=== PATIENT | female | born 1950 | race Caucasian/White ===

== ENCOUNTER 2024-04-21 15:31 | Inpatient (IN) | payer MEDICARE, OTHER, SELFPAY ==
[2024-04-21] VITALS (58 sets, daily range): BP systolic 83–139; BP diastolic 41–66; PULSE 70–94; RESP 14–34; TEMP 36.4; O2SAT 79–100; BMI 23.9
--- NOTE | 2024-04-21 15:37 | ECG_ITS ---
[facility] Test Date: 2024-04-21 Pat Name: Renetta Dodd Department: Room: Gender: Female Sld Inclusion Teacher: : 1950 Requested By: Haven Sarabia Order Number: [id number] Jassi MD: Nancy Villegas M.D. Measurements Intervals [place] Rate: 94 P: 50 NC: 119 QRS: 38 QRSD: 90 T: 95 QT: 366 QTc: 460 Interpretive Statements SINUS RHYTHM WITH SHORT NC INTERVAL ST DEVIATION AND MODERATE T-WAVE ABNORMALITY, CONSIDER ANTEROLATERAL ISCHEMIA [-0.1+ mV T-WAVE IN V3-V6] No previous ECG available for comparison Electronically Signed On 04-21-2024 23:49:28 CDT by Nancy Villegas M.D. [email or web address] [id number] f
--- NOTE | 2024-04-21 15:37 | XRR_ITS ---
PROCEDURE INFORMATION: Exam: XR Chest Exam date and time: 04/21/2024 4:00 PM Age: 73 years old Clinical indication: Shortness of breath TECHNIQUE: Imaging protocol: Radiologic exam of the chest. Views: 1 view. COMPARISON: No relevant prior studies available. FINDINGS: Tubes, catheters and devices: A large caliber central venous catheter or dialysis catheter seen on the right, with tip of the catheter overlying the expected level of the right atrium. Lungs: See Pleural spaces finding. Pleural spaces: Opacity is seen within the lower right lung with decreased visualization of the right diaphragm margin and costophrenic angle. Suggestion of eventration or elevation of the right hemidiaphragm. There could be some component of volume loss. Pulmonary vascularity does not appear significantly increased. No pneumothorax. Heart/Mediastinum: Borderline cardiac size. Vasculature: Arteriosclerosis of the thoracic aorta. Bones/joints: Visualized osseous structures show no acute abnormality. XR/XR chest 1V portable [id number] IMPRESSION: 1. Large caliber central venous catheter or dialysis catheter on the right. 2. Opacity lower right lung as noted above. Findings suggest mild right basilar effusion with underlying atelectasis and/or infiltrate or pneumonia.
--- NOTE | 2024-04-21 15:48 | ED_ITS ---
Documented by User: Haven Burger MD 04/21/24 17:47 HPI - SOB/Dyspnea 2 General: Chief Complaint: Shortness of Breath/Dyspnea Stated Complaint: SOB Time Seen by Provider: 04/21/24 15:34 History of Present Illness: HPI Narrative: 73-year-old female with a history of end -stage renal disease on dialysis who presents from dialysis clinic after becoming very short of breath. She was found to be hypotensive. She had just started dialysis. Apparently she just started dialysis here and this may have been her first at this unit. She had a catheter placed a week or so ago in [place]. She had been doing peritoneal dialysis prior to that. She is very difficult on presentation was difficult to tell whether she is agitated or confused. When family does arrive they say this is just how she acts. Very difficult to convince to do any kind of studies. No focal motor deficits. No head injuries. She denies any chest pain. No fever. Review of Systems 2 Narrative: Constitutional symptoms: Negative except as documented in HPI. Skin symptoms: Negative except as documented in HPI. Eye symptoms: Negative except as documented in HPI. ENMT symptoms: Negative except as documented in HPI. Respiratory symptoms: Negative except as documented in HPI. Cardiovascular symptoms: Negative except as documented in HPI. Gastrointestinal symptoms: Negative except as documented in HPI. Genitourinary symptoms: Negative except as documented in HPI. Musculoskeletal symptoms: Negative except as documented in HPI. Neurologic symptoms: Negative except as documented in HPI. Psychiatric symptoms: Negative except as documented in HPI. Endocrine symptoms: Negative except as documented in HPI. Physical Exam 2 Narrative: EXAM NARRATIVE: General: Alert, no acute distress. Skin: Warm, dry. Head: Normocephalic, atraumatic. Neck: Supple, trachea midline. Eye: Extraocular movements are intact. Ears, nose, mouth and throat: mucosa moist. Cardiovascular: Regular, Normal peripheral perfusion. Dialysis catheter in place on the right chest wall. Respiratory: Lungs are clear to auscultation, respirations are non-labored, breath sounds are equal, Symmetrical chest wall expansion. Gastrointestinal: Soft, Nontender, Non distended Musculoskeletal: Normal ROM, no deformity. Neurological: Alert and oriented, No focal neurological deficit observed. Psychiatric: Cooperative, appropriate mood & affect. Course 2 Vital Signs: Vital signs: Vital Signs Temperature 97.5 F L 04/21/24 15:33 Pulse Rate 74 04/21/24 18:35 Respiratory Rate 16 04/21/24 18:35 Blood Pressure 120/55 04/21/24 18:35 Pulse Oximetry 100 04/21/24 18:35 Oxygen Delivery Me thod Room Air 04/21/24 15:33 Fraction of Inspir ed Oxygen 30 04/21/24 17:17 MDM - SOB/Dyspnea Medical Decision Making Medical decision making: Differential diagnosis for patient presenting with generalized weakness including but not limited to and based on the above HPI, review of systems and physical exam: Sepsis. Dehydration. Renal failure. Electrolyte abnormalities. Anemia. Congestive heart failure. Hypotension. Coronary syndrome. Hepatitis. Cirrhosis. Infections such as pneumonia, urinary tract infection, Tick bourne illness, Cellulitis, Viral infections including influenza and Covid-19. Workup: labwork and lab/exam driven imaging ordered to evaluate, rule in and rule out above pathologies. Lab Review: Laboratory results were reviewed and interpreted by myself the emergency room physician. At present the patient has pretty significant leukocytosis with a white count of 17. There is concern for a possible pneumonia on the right side. Family does report that she had a pleural effusion there but also was treated for pneumonia. Given her leukocytosis or hypotension and her symptomatic dizziness I am giving her broad-spectrum antibiotics empirically. Cultures and lactate were ordered. EKG: Time 1535. Rate 94. Normal sinus rhythm, nonspecific ST wave abnormalities. PVCs, normal [place]Y & QRS intervals, This was reviewed and interpreted by myself the ER physician at 1535 Chest x-ray: Venous catheter in place on the right side of chest. There is an opacity in the right lower lung. This could be an effusion with some atelectasis or an infiltrate/pneumonia. This was reviewed and interpreted by myself the emergency room physician. I also reviewed the radiology report. Repeat EKG: Time 1738. Rate 84. Normal sinus rhythm, normal [place]Y & QRS intervals, This was reviewed and interpreted by myself the ER physician at 1738. Less nonspecific ST changes. Still with ectopy. Patient care transition to Dr. Clark at shift change: Urinalysis is pending. Patient has refused to do a CT of her chest or head. Given that she has had no head injury and apparently she is at her baseline mentally I do not feel like a head CT is absolutely necessary. And is for CT would help to determine whether this is a pneumonia or not but I am treating her empirically for pneumonia/sepsis as is. Thus far I have initiated BiPAP for hypercapnic respiratory failure and for her work of breathing. Given her leukocytosis I started broad-spectrum antibiotics meropenem and Zyvox. Concern for UTI versus a pneumonia. Also her blood pressure was low so I did give 500 ml normal saline bolus. Lab Data 04/21/24 15:30 04/21/24 15:30 Labs/Radiology: Radiology Impressions Chest X-Ray 04/21/24 15:37 IMPRESSION: 1. Large caliber central venous catheter or dialysis catheter on the right. 2. Opacity lower right lung as noted above. Findings suggest mild right basilar effusion with underlying atelectasis and/or infiltrate or pneumonia. Laboratory Results WBC 17.44 10^3/uL (3.29-11.43) H 04/21/24 15:30 RBC 3.16 10^6/uL (3.85-5.65) L 04/21/24 15:30 Hgb 10.00 g/dL (11.27-16.99) L 04/21/24 15:30 Hct 33.9 % (36-47) L 04/21/24 15:30 MCV 107.3 fl (85-98) H 04/21/24 15:30 MCH 31.6 pg (27-33) 04/21/24 15:30 MCHC 29.5 g/dL (30-55) L 04/21/24 15:30 RDW 15.9 % (12.1-15.1) H 04/21/24 15:30 Plt Count 88 10^3/cmm (157-399) L 04/21/24 15:30 MPV 12.0 fL (7.4-10.4) H 04/21/24 15:30 Neut % (Auto) 88.8 % 04/21/24 15:30 Lymph % (Auto) 3.4 % 04/21/24 15:30 [place] % (Auto) 4.8 % 04/21/24 15:30 Eos % (Auto) 0.4 % 04/21/24 15:30 Baso % (Auto) 0.4 % 04/21/24 15:30 Neut # (Auto) 15.48 10^3/uL (1.8-7.7) H 04/21/24 15:30 Lymph # (Auto) 0.6 10^3/uL (0.8-4.8) L 04/21/24 15:30 [place] # (Auto) 0.8 10^3/uL (0.2-0.9) 04/21/24 15:30 Eos # (Auto) 0.1 10^3/uL (0.0-0.8) 04/21/24 15:30 Baso # (Auto) 0.1 10^3/uL (0.0-0.1) 04/21/24 15:30 Nucleated RBC % (auto) 0.1 % 04/21/24 15:30 Nucleated RBCs # 0.0 /100WBC 04/21/24 15:30 Specimen Type Arterial 04/21/24 15:44 Sample Site Radial, left 04/21/24 15:44 ABG pH 7.32 (7.35-7.45) L 04/21/24 15:44 ABG pCO2 59.5 mmHg (35-45) H 04/21/24 15:44 ABG pO2 69.3 mmHg (80.0-100.0) L 04/21/24 15:44 ABG PO2/FiO2 Ratio 346 04/21/24 15:44 ABG HCO3 30.7 mmol/L (22-26) H 04/21/24 15:44 ABG O2 Saturation 92.5 04/21/24 15:44 ABG Base Excess 3.7 mmol/L (-2.0-2.0) H 04/21/24 15:44 Sid Test Pos 04/21/24 15:44 A-a O2 Gradient 7.5 mmHg (5-10) 04/21/24 15:44 Hematocrit 29.2 % (37-47) L 04/21/24 15:44 Hgb O2 Saturation 90.6 % (95-100) L 04/21/24 15:44 Carboxyhemoglobin 1.7 %THgb (0.4-20.1) 04/21/24 15:44 Methemoglobin 0.3 % (0.4-1.5) L 04/21/24 15:44 Total Hemoglobin 9.5 g/dL (12-16) L 04/21/24 15:44 Sodium 141.0 mmol/L (131-143) 04/21/24 15:44 Potassium 3.9 mmol/L (3.5-5.0) 04/21/24 15:44 Glucose 96.0 mg/dL (70-115) 04/21/24 15:44 Ionized Calcium 1.2 mmol/L (1.1-1.4) 04/21/24 15:44 O2 Delivery Device Nc 04/21/24 15:44 O2 Liters/Min 2.0 % 04/21/24 15:44 FiO2 28.0 % 04/21/24 15:44 Painter Sign Maintenance ID Cak 04/21/24 15:44 Sodium 141 mmol/L (136-145) 04/21/24 15:30 Potassium 4.4 mmol/L (3.5-5.1) 04/21/24 15:30 Chloride 97 mmol/L (98-107) L 04/21/24 15:30 Carbon Dioxide 27 mmol/L (22-29) 04/21/24 15:30 Anion Gap 21.4 (5-19) H 04/21/24 15:30 BUN 27 mg/dL (8-23) H 04/21/24 15:30 Creatinine 5.4 mg/dL (0.5-0.9) H 04/21/24 15:30 GFR Calculation Not Reportable 04/21/24 15:30 Glucose 94 mg/dL (65-115) 04/21/24 15:30 Calculated Osmolality 297 mOsm/kg (285-295) H 04/21/24 15:30 Lactic Acid 1.9 mmol/L (0.5-2.2) 04/21/24 15:30 Calcium 9.2 mg/dL (8.5-10.5) 04/21/24 15:30 Phosphorus 5.1 mg/dL (2.5-4.5) H 04/21/24 15:30 Magnesium 1.6 mg/dL (1.7-2.3) L 04/21/24 15:30 Total Bilirubin 0.7 mg/dL (0.15-1.2) 04/21/24 15:30 AST 66 U/L (0-32) H 04/21/24 15:30 ALT 40 U/L (0-33) H 04/21/24 15:30 Alkaline Phosphatase 162 U/L (35-105) H 04/21/24 15:30 Troponin T Baseline 772 ng/L (0-10) H* 04/21/24 15:30 Troponin T 120 Minute 733.0 ng/L (0-10) H 04/21/24 17:12 Delta Troponin T -39.0 ABS# (0-10) L 04/21/24 17:12 Total Protein 6.0 g/dL (6.6-8.7) L 04/21/24 15:30 Albumin 3.3 g/dL (3.5-5.2) L 04/21/24 15:30 Globulin 2.7 g/dL (1.3-4.6) 04/21/24 15:30 Discharge Plan Discharge Patient Disposition: Admitted As Inpatient Clinical Impression: Right lower lobe pneumonia, Acute hypoxic respiratory failure, Non-ST elevation AK (NSTEMI), End stage renal disease on dialysis, Pleural effusion on right Condition: Stable Referrals: Oscar Lara FNP [Family Provider] - Patient Instructions: Opioid Safety, Pain Management Coding Level of Care Code ED Fax Machine Repairer for Chg Fwd Documented by User: Camacho Clark DO 04/21/24 19:38 HPI - SOB/Dyspnea 2 General: Chief Complaint: Shortness of Breath/Dyspnea Stated Complaint: SOB Time Seen by Provider: 04/21/24 15:34 Course 2 Vital Signs: Vital signs: Vital Signs Temperature 97.5 F L 04/21/24 15:33 Pulse Rate 74 04/21/24 18:35 Respiratory Rate 16 04/21/24 18:35 Blood Pressure 120/55 04/21/24 18:35 Pulse Oximetry 100 04/21/24 18:35 Oxygen Delivery Me thod Room Air 04/21/24 15:33 Fraction of Inspir ed Oxygen 30 04/21/24 17:17 MDM - SOB/Dyspnea Medical Decision Making Medical decision making: Differential diagnosis for patient presenting with generalized weakness including but not limited to and based on the above HPI, review of systems and physical exam: Sepsis. Dehydration. Renal failure. Electrolyte abnormalities. Anemia. Congestive heart failure. Hypotension. Coronary syndrome. Hepatitis. Cirrhosis. Infections such as pneumonia, urinary tract infection, Tick bourne illness, Cellulitis, Viral infections including influenza and Covid-19. Workup: labwork and lab/exam driven imaging ordered to evaluate, rule in and rule out above pathologies. Lab Review: Laboratory results were reviewed and interpreted by myself the emergency room physician. At present the patient has pretty significant leukocytosis with a white count of 17. There is concern for a possible pneumonia on the right side. Family does report that she had a pleural effusion there but also was treated for pneumonia. Given her leukocytosis or hypotension and her symptomatic dizziness I am giving her broad-spectrum antibiotics empirically. Cultures and lactate were ordered. EKG: Time 1535. Rate 94. Normal sinus rhythm, nonspecific ST wave abnormalities. PVCs, normal WY & QRS intervals, This was reviewed and interpreted by myself the ER physician at 1535 Chest x-ray: Venous catheter in place on the right side of chest. There is an opacity in the right lower lung. This could be an effusion with some atelectasis or an infiltrate/pneumonia. This was reviewed and interpreted by myself the emergency room physician. I also reviewed the radiology report. Repeat EKG: Time 1738. Rate 84. Normal sinus rhythm, normal WY & QRS intervals, This was reviewed and interpreted by myself the ER physician at 1738. Less nonspecific ST changes. Still with ectopy. Patient care transition to Dr. Clark at shift change: Urinalysis is pending. Patient has refused to do a CT of her chest or head. Given that she has had no head injury and apparently she is at her baseline mentally I do not feel like a head CT is absolutely necessary. And is for CT would help to determine whether this is a pneumonia or not but I am treating her empirically for pneumonia/sepsis as is. Thus far I have initiated BiPAP for hypercapnic respiratory failure and for her work of breathing. Given her leukocytosis I started broad-spectrum antibiotics meropenem and Zyvox. Concern for UTI versus a pneumonia. Also her blood pressure was low so I did give 500 ml normal saline bolus. Patient transferred over to my care shift change, reviewed lab work chest x-ray, discussed these with the family, discussed the case with Dr. Ramirez we will admit the patient for hypoxia, respiratory failure, probable pneumonia versus pulmonary effusion, possible NSTEMI. Will place the patient in CSU, we will get a sputum culture, add vancomycin, heparin drip, Lab Data 04/21/24 15:30 04/21/24 15:30 Labs/Radiology: Radiology Impressions Chest X-Ray 04/21/24 15:37 IMPRESSION: 1. Large caliber central venous catheter or dialysis catheter on the right. 2. Opacity lower right lung as noted above. Findings suggest mild right basilar effusion with underlying atelectasis and/or infiltrate or pneumonia. Laboratory Results WBC 17.44 10^3/uL (3.29-11.43) H 04/21/24 15:30 RBC 3.16 10^6/uL (3.85-5.65) L 04/21/24 15:30 Hgb 10.00 g/dL (11.27-16.99) L 04/21/24 15:30 Hct 33.9 % (36-47) L 04/21/24 15:30 MCV 107.3 fl (85-98) H 04/21/24 15:30 MCH 31.6 pg (27-33) 04/21/24 15:30 MCHC 29.5 g/dL (30-55) L 04/21/24 15:30 RDW 15.9 % (12.1-15.1) H 04/21/24 15:30 Plt Count 88 10^3/cmm (157-399) L 04/21/24 15:30 MPV 12.0 fL (7.4-10.4) H 04/21/24 15:30 Neut % (Auto) 88.8 % 04/21/24 15:30 Lymph % (Auto) 3.4 % 04/21/24 15:30 [place] % (Auto) 4.8 % 04/21/24 15:30 Eos % (Auto) 0.4 % 04/21/24 15:30 Baso % (Auto) 0.4 % 04/21/24 15:30 Neut # (Auto) 15.48 10^3/uL (1.8-7.7) H 04/21/24 15:30 Lymph # (Auto) 0.6 10^3/uL (0.8-4.8) L 04/21/24 15:30 [place] # (Auto) 0.8 10^3/uL (0.2-0.9) 04/21/24 15:30 Eos # (Auto) 0.1 10^3/uL (0.0-0.8) 04/21/24 15:30 Baso # (Auto) 0.1 10^3/uL (0.0-0.1) 04/21/24 15:30 Nucleated RBC % (auto) 0.1 % 04/21/24 15:30 Nucleated RBCs # 0.0 /100WBC 04/21/24 15:30 Specimen Type Arterial 04/21/24 15:44 Sample Site Radial, left 04/21/24 15:44 ABG pH 7.32 (7.35-7.45) L 04/21/24 15:44 ABG pCO2 59.5 mmHg (35-45) H 04/21/24 15:44 ABG pO2 69.3 mmHg (80.0-100.0) L 04/21/24 15:44 ABG PO2/FiO2 Ratio 346 04/21/24 15:44 ABG HCO3 30.7 mmol/L (22-26) H 04/21/24 15:44 ABG O2 Saturation 92.5 04/21/24 15:44 ABG Base Excess 3.7 mmol/L (-2.0-2.0) H 04/21/24 15:44 Sid Test Pos 04/21/24 15:44 A-a O2 Gradient 7.5 mmHg (5-10) 04/21/24 15:44 Hematocrit 29.2 % (37-47) L 04/21/24 15:44 Hgb O2 Saturation 90.6 % (95-100) L 04/21/24 15:44 Carboxyhemoglobin 1.7 %THgb (0.4-20.1) 04/21/24 15:44 Methemoglobin 0.3 % (0.4-1.5) L 04/21/24 15:44 Total Hemoglobin 9.5 g/dL (12-16) L 04/21/24 15:44 Sodium 141.0 mmol/L (131-143) 04/21/24 15:44 Potassium 3.9 mmol/L (3.5-5.0) 04/21/24 15:44 Glucose 96.0 mg/dL (70-115) 04/21/24 15:44 Ionized Calcium 1.2 mmol/L (1.1-1.4) 04/21/24 15:44 O2 Delivery Device Nc 04/21/24 15:44 O2 Liters/Min 2.0 % 04/21/24 15:44 FiO2 28.0 % 04/21/24 15:44 Painter Sign Maintenance ID Cak 04/21/24 15:44 Sodium 141 mmol/L (136-145) 04/21/24 15:30 Potassium 4.4 mmol/L (3.5-5.1) 04/21/24 15:30 Chloride 97 mmol/L (98-107) L 04/21/24 15:30 Carbon Dioxide 27 mmol/L (22-29) 04/21/24 15:30 Anion Gap 21.4 (5-19) H 04/21/24 15:30 BUN 27 mg/dL (8-23) H 04/21/24 15:30 Creatinine 5.4 mg/dL (0.5-0.9) H 04/21/24 15:30 GFR Calculation Not Reportable 04/21/24 15:30 Glucose 94 mg/dL (65-115) 04/21/24 15:30 Calculated Osmolality 297 mOsm/kg (285-295) H 04/21/24 15:30 Lactic Acid 1.9 mmol/L (0.5-2.2) 04/21/24 15:30 Calcium 9.2 mg/dL (8.5-10.5) 04/21/24 15:30 Phosphorus 5.1 mg/dL (2.5-4.5) H 04/21/24 15:30 Magnesium 1.6 mg/dL (1.7-2.3) L 04/21/24 15:30 Total Bilirubin 0.7 mg/dL (0.15-1.2) 04/21/24 15:30 AST 66 U/L (0-32) H 04/21/24 15:30 ALT 40 U/L (0-33) H 04/21/24 15:30 Alkaline Phosphatase 162 U/L (35-105) H 04/21/24 15:30 Troponin T Baseline 772 ng/L (0-10) H* 04/21/24 15:30 Troponin T 120 Minute 733.0 ng/L (0-10) H 04/21/24 17:12 Delta Troponin T -39.0 ABS# (0-10) L 04/21/24 17:12 Total Protein 6.0 g/dL (6.6-8.7) L 04/21/24 15:30 Albumin 3.3 g/dL (3.5-5.2) L 04/21/24 15:30 Globulin 2.7 g/dL (1.3-4.6) 04/21/24 15:30 All radiology interpretation(s) finalized by discharge Discharge Plan Discharge Patient Disposition: Admitted As Inpatient Clinical Impression: Right lower lobe pneumonia, Acute hypoxic respiratory failure, Non-ST elevation AK (NSTEMI), End stage renal disease on dialysis, Pleural effusion on right Condition: Stable Referrals: Oscar Lara FNP [Family Provider] - Patient Instructions: Opioid Safety, Pain Management Coding Level of Care Code ED Fax Machine Repairer for Celeste Melgar
[2024-04-21 15:55] LABS: ABG PCO2 59.5 mmHg (35-45); ABG PH Result 7.32 (7.35-7.45); Alveolar-Arterial Oxygen Gradi 7.5 mmHg (5-10); Arterial Blood Gas Hematocrit 29.2 % (37-47); Base Excess ABG 3.7 mmol/L (-2.0-2.0); Blood Gas Allen Test Pos; Blood Gas Operator Identificat CAK; Blood Gas Sample Site Radial, left; Blood Gas Sample Type Arterial; Carboxyhemoglobin 1.7 %THgb (0.4-20.1); HCO3 ABG 30.7 mmol/L (22-26); HGB O2 Sat 90.6 % (95-100); Ionized Calcium Level - ABG 1.2 mmol/L (1.1-1.4); Methemoglobin 0.3 % (0.4-1.5); Oxygen Device NC; Oxygen Saturation ABG 92.5; PO2 ABG 69.3 mmHg (80.0-100.0); PO2 FiO2 Ratio Arterial Blood 346; Potassium Level - ABG 3.9 mmol/L (3.5-5.0); Total Hemoglobin 9.5 g/dL (12-16)
[2024-04-21 16:16] LABS: Basophils # 0.1 10^3/uL (0.0-0.1); Basophils % 0.4 %; Eosinophils # 0.1 10^3/uL (0.0-0.8); Eosinophils % 0.4 %; Hematocrit 33.9 % (36-47); Lymphocytes # 0.6 10^3/uL (0.8-4.8); Lymphocytes % 3.4 %; Mean Corpuscular HGB Conc 29.5 g/dL (30-55); Mean Corpuscular Hemoglobin 31.6 pg (27-33); Mean Corpuscular Volume 107.3 fl (85-98); Monocytes # 0.8 10^3/uL (0.2-0.9); Monocytes % 4.8 %; Neutrophils # 15.48 10^3/uL (1.8-7.7); Neutrophils % 88.8 %; Nucleated Red Blood Cells % 0.1 %; Platelet Count 88 10^3/cmm (157-399); Red Blood Count 3.16 10^6/uL (3.85-5.65); Red Cell Distribution Width 15.9 % (12.1-15.1); White Blood Count 17.44 10^3/uL (3.29-11.43)
[2024-04-21 16:37] LABS: Alanine Aminotransferase 40 U/L (0-33); Albumin Level 3.3 g/dL (3.5-5.2); Alkaline Phosphatase 162 U/L (35-105); Chloride 97 mmol/L (98-107); Potassium 4.4 mmol/L (3.5-5.1); Sodium 141 mmol/L (136-145)
[2024-04-21 16:38] LABS: Lactic Sepsis W/Reflex 1.9 mmol/L (0.5-2.2)
[2024-04-21 16:42] LABS: Troponin(5th) Baseline 772 ng/L (0-10)
[2024-04-21 16:51] LABS: Anion Gap 21.4 (5-19); Aspartate Amino Transferase 66 U/L (0-32); Blood Urea Nitrogen 27 mg/dL (8-23); Calcium 9.2 mg/dL (8.5-10.5); Carbon Dioxide 27 mmol/L (22-29); Globulin 2.7 g/dL (1.3-4.6); Glucose 94 mg/dL (65-115); Magnesium 1.6 mg/dL (1.7-2.3); Osmolality Calculated 297 mOsm/kg (285-295); Phosphorus 5.1 mg/dL (2.5-4.5); Total Bilirubin 0.7 mg/dL (0.15-1.2)
[2024-04-21] MEDS: meropenem 500 MG in sodium chloride 0.9% (plus) 50 ML 100 MG IV (17:04)
--- NOTE | 2024-04-21 17:38 | ECG_ITS ---
[facility] Test Date: 2024-04-21 Pat Name: Renetta Dodd Department: Room: Gender: Female Precision Instrument Maker: : 1950 Requested By: Haven Sarabia Order Number: [id number] Jassi MD: Nancy Villegas M.D. Measurements Intervals [employer] Rate: 84 P: 58 [place]: 121 QRS: 24 QRSD: 89 T: 27 QT: 387 QTc: 458 Interpretive Statements SINUS RHYTHM WITH OCCASIONAL SUPRAVENTRICULAR PREMATURE COMPLEXES NONSPECIFIC T-WAVE ABNORMALITY Compared to ECG 04/21/2024 15:33:06 Short [place] interval no longer present Possible ischemia no longer present T-wave abnormality still present Electronically Signed On 04-23-2024 0:14:21 CDT by Nancy Villegas M.D. [email or web address] lady of mercy hospital.[place]/store/OM/[id number]
[2024-04-21] MEDS: linezolid premix 600 MG/300 ML PREMIX 300 MG IV (17:44)
[2024-04-21] MEDS: sodium chloride 0.9% 500 ML 999 ML IV (18:07)
--- NOTE | 2024-04-21 19:44 | USCV_ITS ---
Renetta Dodd Age: 73 Gender: F : 1950 Exam Date: 04/21/2024 20:30 Ordering Phys: Conrado Herbert MD Technologist: CARLOS Exam Location: [facility] [place] Indication: nstemi, CHF, end-stage renal dz on dialysis, SOB, hypotension. No history of cardiac intervention per patient. BP: 120 / 55 HR: 75 Rhythm: Sinus Technical Quality: Adequate MEASUREMENTS (Male / Female) Normal Values 2D ECHO LV Diastolic Diameter PLAX 4.2 cm 4.2 - 5.9 / 3.9 - 5.3 cm IVS Diastolic Thickness 1.6 cm 0.6 - 1.0 / 0.6 - 0.9 cm IVS Systolic Thickness 1.6 cm LVPW Diastolic Thickness 1.7 cm 0.6 - 1.0 / 0.6 - 0.9 cm LVPW Systolic Thickness 1.4 cm LVOT Diameter 1.6 cm LV Ejection Fraction 2D Teich 55.9 % LV Ejection Fraction MOD 2C 52.1 % LV Ejection Fraction 2C AL 50.6 % LA Diameter 3.6 cm LA Sys Volume AL 75.4 cm cubed LA Sys Volume Index AL 52.0 cm cubed/m squared Aorta at Sinotubular Diameter 2.1 cm IVC Diameter 1.5 cm M-MODE LA Ao Ratio MM 1.6 AV Cusp Separation MM 0.6 cm DOPPLER AV Peak Velocity 162.0 cm/s LVOT Peak Velocity 85.0 cm/s AV Area Cont Eq vti 1.2 cm squared AV Area Cont Eq pk 1.1 cm squared MV Peak Velocity 168.0 cm/s MV Area PHT 2.6 cm squared Mitral E to A Ratio 1.2 TR Peak Velocity 255.0 cm/s TR Peak Gradient 26.0 mmHg TV Peak E Velocity 57.0 cm/s Right Atrial Pressure 10.0 mmHg Pulmonary Artery Systolic Pressu 36.0 mmHg PV Peak Velocity 121.0 cm/s FINDINGS Left Ventricle Left ventricular ejection fraction is estimated at 65%, visual.Mild left ventricular hypertrophy. No regional wall motion abnormalities. Grade III/IV diastolic dysfunction (restrictive filling pattern), severely elevated filling pressures. Right Ventricle The right ventricle is normal in size and function. Right Atrium The right atrium is normal in size. Left Atrium Mildly increased left atrial size. Mitral Valve Moderate mitral annular calcification. Thickened mitral valve. Mild mitral valve regurgitation. Aortic Valve Thickened aortic valve. Tricuspid Valve Trace to mild tricuspid valve regurgitation. Estimated pulmonary artery peak systolic pressure 36 mmHg Pulmonic Valve No gross abnormalities noted Pericardium Normal pericardium without effusion. Aorta Normal aortic annulus size. IVC Normal inferior vena cava. Features of possible large pleural effusion CONCLUSIONS Left ventricular ejection fraction is estimated at 65%, visual.Mild left ventricular hypertrophy. No regional wall motion abnormalities. Grade III/IV diastolic dysfunction (restrictive filling pattern), severely elevated filling pressures. Mildly increased left atrial size. Moderate mitral annular calcification. Thickened mitral valve. Mild mitral valve regurgitation. Thickened aortic valve. Trace to mild tricuspid valve regurgitation. Estimated pulmonary artery peak systolic pressure 36 mmHg. There is no pericardial effusion. There are no intracardiac masses. Features of possible large pleural effusion on the left side No similar previous studies are available for comparison Dr Nancy Villegas MD FACC (Electronically Signed) Final Date: 21 April 2024 21:50 S
[2024-04-21] MEDS: vancomycin 1,000 MG in sodium chloride 0.9% 250 ML 250 MG IV (20:20)
[2024-04-21 20:21] LABS: D Dimer 17.25 ug/mLFEU (0-0.59)
--- NOTE | 2024-04-21 20:40 | PC.NURSE ---
Addendum entered by Bri Julio RN 04/21/24 20:50: Dr. Clark okayed to wait after echo to start Heparin Drip. Original Note: Ultrasound at bedside to perform Echo, pt has one iv at this time. Pt has vancomycin infusing into IV. Pt will need second IV for heparin drip, once echo is complete new IV and heparin drip will be started.
[2024-04-21 20:55] LABS: Procalcitonin > 100.00 ng/mL (0-0.5)
[2024-04-21] MEDS: heparin 5,000 unit/mL INJ 1 mL IV (21:27)
[2024-04-21] MEDS: heparin drip 25,000 UNIT/500 ML PREMIX 15.24 UNIT IV (21:35)
--- NOTE | 2024-04-21 21:37 | ECG_ITS ---
[facility] Test Date: 2024-04-21 Pat Name: Renetta Dodd Department: Room: ICU08 Gender: Female Paper Machine Tender: : 1950 Requested By: Haven Sarabia Order Number: [id number] Jassi MD: Nancy Villegas M.D. Measurements Intervals [place] Rate: 76 P: 58 MI: 113 QRS: 19 QRSD: 89 T: -79 QT: 394 QTc: 444 Interpretive Statements SINUS RHYTHM WITH SHORT MI INTERVAL ST DEVIATION AND MODERATE T-WAVE ABNORMALITY, CONSIDER ANTEROLATERAL ISCHEMIA [-0.1+ mV T-WAVE IN V3-V6] Compared to ECG 04/21/2024 17:38:07 Short MI interval now present Possible ischemia now present T-wave abnormality still present Electronically Signed On 04-23-2024 0:16:06 CDT by Nancy Villegas M.D. [id number]
--- NOTE | 2024-04-21 21:46 | PC.NURSE ---
Arrival to ICU: Pt arrived to ICU 8 @2145. Continous cardiac monitoring continued. AMS. 0/10 Pain. Family at bedside. Pt and family refusing chest CTA at this time, they expressed concerns about the pts ability to lay flat and that contrast would be harmful, purpose of test explained, Dr. Grover aware, order to reassess post dialysis tomorrow. Some low BPs noted, Dr. Grover notified @1275, order for goal MAP greater than or equal to 60.
--- NOTE | 2024-04-21 21:48 | CTR_ITS ---
PROCEDURE INFORMATION: Exam: CTA Chest With Contrast Exam date and time: 04/22/2024 2:33 AM Age: 73 years old Clinical indication: Abnormal findings; Abnormal diagnostic tests; Elevated d-dimer; Additional info: Possible pe, elevated dimer TECHNIQUE: Imaging protocol: Computed tomographic angiography of the chest with contrast. Exam focused on the arteries. 3D rendering (Not supervised by radiologist): MIP and/or 3D reconstructed images were created by the technologist. Radiation optimization: All CT scans at this facility use at least one of these dose optimization techniques: automated exposure control; mA and/or kV adjustment per patient size (includes targeted exams where dose is matched to clinical indication); or iterative reconstruction. Contrast material: OMNI 350; Contrast volume: 56 ml; Contrast route: INTRAVENOUS (IV); COMPARISON: CR XR chest 1V portable [id number] 04/21/2024 4:00 PM RADIATION DOSE METRICS: Total DLP (mGy-cm): 362.9 FINDINGS: Tubes, catheters and devices: Right IJ double lumen hemodialysis catheter in place. Pulmonary arteries: No vascular intraluminal filling defects to suggest pulmonary embolism. Aorta: Extensive diffuse atherosclerotic vascular calcification. No aortic aneurysm. Densely calcified visualized upper abdominal aorta with severe aortic stenosis. Lungs: Posterior right upper lobe and more extensive right middle lower lobe atelectasis and volume loss. Mild upper lung zone emphysema, biapical scarring and numerous scattered tiny punctate pulmonary nodules. Posterior right lower lobe calcified granuloma. Pleural spaces: Large multiloculated right pleural effusion with mild pleural thickening and nodularity. Trace left pleural effusion. Heart: Heart size is normal. Calcified mitral annulus. Coronary arteries: Coronary artery calcifications. Lymph nodes: Mediastinal, right hilar and subcarinal lymphadenopathy including 2.1 x 3.1 cm subcarinal lymph node. A few small partially calcified mediastinal lymph nodes. Liver: Heterogeneous liver with innumerable hepatic low-attenuation lesions suspicious for diffuse hepatic metastasis. Bones/joints: Thoracic spondylosis and degenerative bony changes. Soft tissues: No significant soft tissue abnormalities. CT/CT angio chest PE protcl [id number] IMPRESSION: 1. No evidence of pulmonary embolism. 2. Large multiloculated right pleural effusion with mild pleural thickening and nodularity. Findings are suspicious for possible malignant effusion. 3. Posterior right upper lobe and more extensive right middle lower lobe atelectasis and volume loss. An underlying pulmonary lesion could be obscured. 4. Mild upper lung zone emphysema, biapical scarring and numerous scattered tiny punctate pulmonary nodules. Fleischner Society follow up recommendations for incidental nodules are not applicable. Follow up per the patient's medical condition. 5. Mediastinal, right hilar and subcarinal lymphadenopathy including 2.1 x 3.1 cm subcarinal lymph node. 6. Heterogeneous liver with innumerable hepatic low-attenuation lesions suspicious for diffuse hepatic metastasis. 7. Atherosclerotic vascular disease including coronary artery disease. 8. Densely calcified visualized upper abdominal aorta with severe aortic stenosis. COMMENTS: The presence of pulmonary emphysema on CT is an independent risk factor for lung cancer. In the absence of a history or active diagnosis of lung cancer, it is recommended that this patient with emphysema be evaluated for enrollment in a low dose CT lung cancer screening program.
--- NOTE | 2024-04-21 21:57 | P.HP_ITS ---
Providers/Chief Complaint 2 Admitting Physician: Conrado Herbert MD Chief Complaint: SOB History of Present Illness History is limited as patient is unable to have an extended conversation. She states she feels too weak to talk. Per history available from review of ER notes, patient has a history of end-stage renal disease who used to be on peritoneal dialysis until about 2 months ago when she was switched to hemodialysis. I am uncertain regarding the details as to why the switch was made. At a minimum patient denies any recurrent PD peritonitis, however at this time I am not certain how accurate her history may be. She presented to her dialysis clinic earlier today where she was found to be hypotensive and ill-appearing and was therefore directed to come into the emergency room. She states she has been feeling unwell at least for the past 2 months. Denies any focal symptoms such as chest pain dyspnea palpitations URI type symptoms etc. She states she has a chronic cough, this does not appear to have changed significantly over the past 2 months. Denies any recent issues with her tunneled IJ over the right chest wall though there is noted to be some bruising around the insertion site. She denies any abdominal pain nausea or vomiting. States that she wishes to go back to sleep and unable to relate any history. Upon evaluation in the emergency room she was initially hypotensive with blood pressure 83/49 millimeters mercury, at the time of my assessment this is improved to 104/56 with a MAP of 64. She is alert awake, able to tell me her name and age , knows that she is in the hospital. She was found to have leukocytosis with a white blood cell count of 17,000, elevated D-dimer at 17.25, elevated troponins with baseline at 772, downtrending at 2 and 6 hours. Chest x-ray showed opacity in the right lower lung with right basilar effusion. Review of Systems 2 General: Reports: ROS unobtainable due to medical condition Medications/Allergies Allergies Allergy/AdvReac Type Severity Reaction Status Date / Time morphine AdvReac ADR-Nausea Verified 04/21/24 23:01 Vitals/I&O/Wt Last Vital Signs Temp 97.5 F L 04/21/24 15:33 Pulse 74 04/21/24 18:35 Resp 16 04/21/24 18:35 BP 120/55 04/21/24 18:35 Pulse Ox 100 04/21/24 18:35 O2 Del Method Room Air 04/21/24 15:33 FiO2 30 04/21/24 17:17 04/21/24 04/21/24 04/21/24 06:59 14:59 22:59 Intake Total 850 / 850 Balance 850 / 850 Weight last 48 hrs Weight 54.431 kg Physical Exam 2 Narrative: General: lethargic, however wakes up easily to calling name and answers all leading questions HEENT: PERRLA, pupils bilaterally equal and reactive, pallors not present Chest: Normal vesicular breath sounds, no added sounds, equal good air entry bilaterally CVS: S1-S2 regular, no murmurs, no tachycardia, no gallops, no rubs Abdomen: Soft, nontender, no organomegaly, bowel sounds present Neuro: No focal motor deficits Data 04/21/24 15:30 04/21/24 15:30 Micro: Microbiology 04/21/24 15:30 Blood Culture - Preliminary Blood SPECIMEN COLLECTED 04/21/24 15:59 Blood Culture - Preliminary Blood SPECIMEN COLLECTED Other data: Patient: Renetta Dodd Unit #: [id number] : 1950 Age/Sex: 73 / F ADM Date: 04/21/24 Loc: ER Room/Bed: Attending Dr: Ordering Provider/Ordering MD: Haven Burger MD Date of Service: 04/21/24 Procedure(s): XR chest 1V portable [id number] Accession Number(s): [id number] Report Number: [id number] PROCEDURE INFORMATION: Exam: XR Chest Exam date and time: 04/21/2024 4:00 PM Age: 73 years old Clinical indication: Shortness of breath TECHNIQUE: Imaging protocol: Radiologic exam of the chest. Views: 1 view. COMPARISON: No relevant prior studies available. FINDINGS: Tubes, catheters and devices: A large caliber central venous catheter or dialysis catheter seen on the right, with tip of the catheter overlying the expected level of the right atrium. Lungs: See Pleural spaces finding. Pleural spaces: Opacity is seen within the lower right lung with decreased visualization of the right diaphragm margin and costophrenic angle. Suggestion of eventration or elevation of the right hemidiaphragm. There could be some component of volume loss. Pulmonary vascularity does not appear significantly increased. No pneumothorax. Heart/Mediastinum: Borderline cardiac size. Vasculature: Arteriosclerosis of the thoracic aorta. Bones/joints: Visualized osseous structures show no acute abnormality. XR/XR chest 1V portable [id number] IMPRESSION: 1. Large caliber central venous catheter or dialysis catheter on the right. 2. Opacity lower right lung as noted above. Findings suggest mild right basilar effusion with underlying atelectasis and/or infiltrate or pneumonia. A&P Assessment and plan (1) Non-ST elevation [place] (NSTEMI): Patient's is presenting today with with complaints of generalized weakness and lethargy. Found to be hypotensive at dialysis earlier today. Upon evaluation EKG showing sinus rhythm with short CA interval. ST-T depression in leads V3 to V5. Baseline troponin at 772, downtrending to 733 and 661 at 2 and 6 hours respectively with serial negative delta's. Overall clinical picture is concerning for NSTEMI, may have had a recent cardiac event. Start on heparin gtt. weight-based protocol for the same. Start aspirin 81 mg p.o. daily and atorvastatin 40 mg p.o. daily Echocardiogram showing LVEF of 65%, mild LVH. No regional wall motion abnormalities. Grade 3 diastolic dysfunction with severely elevated filling pressures. thickened MV, mild MR, thickened aortic valve. Alternate possibility is that of PE given new oxygen requirement, elevated D- dimer. CT of the chest has been ordered. Patient initially refused evaluation stating that she will not be able to lay flat for the CAT scan to be completed. Discussed with the patient that we may defer CT under dialysis can be completed as patient may feel some symptomatic improvement once volume is regulated after dialysis. Presumptively on heparin drip (2) Hypotension: This is currently resolved. Target MAP 62-65 Ongoing evaluation for underlying infection (3) Right lower lobe pneumonia: Right lower lobe infiltrate with effusion concerning for pneumonia. Start piperacillin/tazobactam and IV vancomycin empirically Sputum culture and Gram stain Urine Legionella and bacterial antigens. Check blood culture. Qualifiers: Pneumonia type: due to unspecified organism Qualified Code(s): J18.9 - Pneumonia, unspecified organism (4) End stage renal disease on dialysis: On hemodialysis twice a week. Consult nephrology to continue patient's schedule while admitted (5) Pleural effusion on right: May be related to underlying consolidation CT of the chest has been ordered which will help delineate extent of effusion, underlying consolidation. (6) Acute hypoxic respiratory failure: Likely multifactorial related to pleural effusion, pneumonia. Possibility of PE not excluded at this time. (7) Thrombocytopenia: Unknown chronicity, will attempt to obtain prior labs. Plan DVT prophylaxis: Currently on heparin anticoagulation Full code Attestations 2 Medical Necessity Statement*: Greater than 2 midnight admission is anticipated for NSTEMI, possible PE, pneumonia needing IV antibiotics Diagnoses Non-ST elevation [place] (NSTEMI) I21.4 Hypotension I95.9 Right lower lobe pneumonia J18.9 Pneumonia type: due to unspecified organism End stage renal disease on dialysis N18.6; Z99.2 Pleural effusion on right J90 Acute hypoxic respiratory failure J96.01 Thrombocytopenia D69.6
[2024-04-21] MEDS: piperacillin-tazobactam 3.375 GM in sodium chloride 0.9% (plus) 50 ML IV (22:31)
[2024-04-21 23:01] LABS: Troponin 5 6HR Delta -110.4 ng/L (0-12)
[2024-04-21 23:04] LABS: Troponin 5 6HR 661.6 ng/L (0-10)
[2024-04-21] MEDS: pantoprazole 40 mg SDV IVP (23:09)
[2024-04-22] VITALS (60 sets, daily range): BP systolic 93–158; BP diastolic 40–106; PULSE 73–111; RESP 11–30; TEMP 36.3–37.2; O2SAT 77–100; BMI 24.2
--- NOTE | 2024-04-22 02:09 | CTR_ITS ---
PROCEDURE INFORMATION: Exam: CT Head Without Contrast Exam date and time: 04/22/2024 2:28 AM Age: 73 years old Clinical indication: Altered mental status/memory loss; Additional info: AMS TECHNIQUE: Imaging protocol: Computed tomography of the head without contrast. Radiation optimization: All CT scans at this facility use at least one of these dose optimization techniques: automated exposure control; mA and/or kV adjustment per patient size (includes targeted exams where dose is matched to clinical indication); or iterative reconstruction. COMPARISON: No relevant prior studies available. RADIATION DOSE METRICS: Total DLP (mGy-cm): 1031.4 FINDINGS: Brain: There is encephalomalacia noted in the left inferior parietal lobule. There is age-indeterminate ischemia along the undersurface of the right occipital lobe. There is no midline shift, acute hemorrhage, extra-axial fluid collection. Chronic left basal ganglia lacunar infarct is noted. Cerebral ventricles: No ventriculomegaly. Paranasal sinuses: Visualized sinuses are unremarkable. No fluid levels. Mastoid air cells: Visualized mastoid air cells are well aerated. Orbital cavities: The patient is post bilateral cataract surgery. Bones: Unremarkable. No acute fracture. Soft tissues: Unremarkable. Vasculature: Embolic coil masses are noted in the suprasellar cistern and left middle cranial fossa causing beam hardening artifact. CT/CT head wo con* [id number] IMPRESSION: No definite acute intracranial process. Age-indeterminate ischemia in the right occipital lobe. Endovascular implants noted.
[2024-04-22 02:25] LABS: Iron 51 ug/dL (37-145); Thyroid Stimulating Hormone 3.62 uIU/mL (0.27-4.20); Total Iron Binding Capacity 196 mcg/dl; Unsaturated Iron Binding 145 ug/dL (112-347); Vitamin B12 1790 pg/mL (232-1245)
--- NOTE | 2024-04-22 02:38 | USR_ITS ---
PROCEDURE INFORMATION: Exam: US Abdomen; Limited Exam date and time: 04/22/2024 2:59 AM Age: 73 years old Clinical indication: Condition or disease; Other: Transaminitis TECHNIQUE: Imaging protocol: Real time ultrasound of the abdomen with image documentation. Limited exam focused on the region of clinical interest. COMPARISON: CT angio chest PE protcl [id number] 04/22/2024 2:33 AM FINDINGS: Pleural spaces: Large right pleural effusion. Liver: Diffusely heterogeneous liver measuring 17.2 cm in length with innumerable small hepatic nodules. Incidental hepatic calcified granuloma. Gallbladder: Mild dependent layering biliary sludge within the posterior gallbladder. No shadowing gallstones. No significant gallbladder wall thickening. [employer] Straight[employer] reports a negative sonographic Lawton sign. Biliary ducts: Common bile duct measures 5 mm in diameter. Pancreas: Unremarkable visualized pancreas. Right kidney: Small atrophic right kidney not well visualized. Aorta: Diffusely calcified abdominal aorta. No aneurysm. US/US liver [id number] IMPRESSION: 1. Diffusely heterogeneous liver measuring 17.2 cm in length with innumerable small hepatic nodules. Differential diagnosis includes hepatic cirrhosis with regenerative nodules versus diffuse hepatic metastasis. 2. Mild dependent layering biliary sludge within the posterior gallbladder. 3. Large right pleural effusion.
[2024-04-22] MEDS: iohexol 350 mg/mL 500 mL Btl (per mL) IV (02:39)
[2024-04-22] MEDS: ipratropium-albuterol 3 mL Neb INHALATION ×3 (03:31→19:34)
[2024-04-22 03:39] LABS: Basophils # 0.1 10^3/uL (0.0-0.1); Basophils % 0.6 %; Eosinophils # 0.1 10^3/uL (0.0-0.8); Eosinophils % 0.6 %; Hematocrit 33.6 % (36-47); Lymphocytes # 0.9 10^3/uL (0.8-4.8); Lymphocytes % 8.8 %; Mean Corpuscular HGB Conc 29.2 g/dL (30-55); Mean Corpuscular Hemoglobin 31.5 pg (27-33); Mean Platelet Volume 11.7 fL (7.4-10.4); Monocytes # 0.9 10^3/uL (0.2-0.9); Neutrophils # 8.73 10^3/uL (1.8-7.7); Neutrophils % 81.2 %; Nucleated Red Blood Cells % 0 %; Platelet Count 87 10^3/cmm (157-399); Red Blood Count 3.11 10^6/uL (3.85-5.65); Red Cell Distribution Width 15.9 % (12.1-15.1); White Blood Count 10.74 10^3/uL (3.29-11.43)
[2024-04-22 03:49] LABS: Partial Thromboplastin Time 53.7 SECONDS (23.9-36.7)
[2024-04-22 03:58] LABS: Alanine Aminotransferase 35 U/L (0-33); Albumin Level 3.1 g/dL (3.5-5.2); Alkaline Phosphatase 152 U/L (35-105); Anion Gap 16.5 (5-19); Aspartate Amino Transferase 56 U/L (0-32); Blood Urea Nitrogen 32 mg/dL (8-23); Calcium 9.5 mg/dL (8.5-10.5); Carbon Dioxide 30 mmol/L (22-29); Chloride 98 mmol/L (98-107); Globulin 2.8 g/dL (1.3-4.6); Glucose 81 mg/dL (65-115); Magnesium 1.6 mg/dL (1.7-2.3); Osmolality Calculated 296 mOsm/kg (285-295); Phosphorus 6.3 mg/dL (2.5-4.5); Potassium 4.5 mmol/L (3.5-5.1); Sodium 140 mmol/L (136-145); Total Bilirubin 0.6 mg/dL (0.15-1.2); Total Protein 5.9 g/dL (6.6-8.7)
[2024-04-22 04:00] LABS: Ammonia 32 umol/L (11-51); Cholesterol 143 mg/dL (0-200); HDL Cholesterol 55 mg/dL (60-100); LDL Cholesterol Calculated 68 mg/dL (50-129); LDL HDL Ratio 1.24 RATIO (0.00-3.22); Triglycerides 101 mg/dL (0-150)
[2024-04-22] MEDS: heparin 5,000 unit/mL INJ 1 mL IV (04:09)
[2024-04-22 04:10] LABS: Procalcitonin > 100.00 ng/mL (0-0.5)
[2024-04-22 04:38] LABS: Estmated Average Glucose 65; Hemoglobin A1C 3.9 % (4.0-6.0)
[2024-04-22 04:39] LABS: HIV 1 & 2 Antibody Non-Reactive (Non-Reactiv); HIV 1 & 2 Antigen Non-Reactive (Non-Reactiv)
[2024-04-22 04:43] LABS: Hepatitis A Antibody IgM Non-Reactive (Nonreactive); Hepatitis B Core AB, Total Non-Reactive (Nonreactive); Hepatitis B Surface AB 34.7 (11.5-1000); Hepatitis B Surface Antigen Non-Reactive (Nonreactive); Hepatitis C Virus Antibody Non-Reactive (Nonreactive)
[2024-04-22 04:59] LABS: Folate Level 8.9 ng/mL (4.8-37.3)
--- NOTE | 2024-04-22 05:21 | P.CONIM_ITS ---
Providers/Reason For Consult 2 Consulting Physician/Specialty*: kommana/Nephrology Reason for Consult*: ESRD Attending Physician: Tabby Grover MD History of Present Illness History of Present Illness Renetta Dodd is a 73 year old female Patient is a 73-year-old female with past medical history of end-stage renal disease, hypertension presented to her dialysis center and was found to be hypotensive and was sent to the emergency department. 2 months ago patient was switched from peritoneal dialysis to hemodialysis. In the emergency department patient's blood pressures were in the 80s lab data significant for elevated WBC count of 17,000 chest x-ray showed right lower lung opacification. Noted to have elevated troponins. Patient admitted to the hospital for possible NSTEMI and pneumonia. CT angiogram of the chest is negative for PE Review of Systems 2 Narrative: negative Medications/Allergies Home Medications Medication Instructions Recorded Confirmed Last Taken Type albuterol sulfate 2.5 mg/3 mL 2.5 mg inhalation Q6H PRN 04/22/24 04/22/24 Unknown History (0.083 %) solution for nebulization Shortness Of Breath atorvastatin 40 mg tablet 40 mg PO QPM 04/22/24 04/22/24 Unknown History calcitriol 0.25 mcg capsule 0.25 mcg PO DAILY 04/22/24 04/22/24 Unknown History cinacalcet 30 mg tablet 30 mg PO DAILY 04/22/24 04/22/24 Unknown History clonidine HCl 0.1 mg tablet 0.1 mg PO BID 04/22/24 04/22/24 Unknown History doxazosin 2 mg tablet 2 mg PO BEDTIME 04/22/24 04/22/24 Unknown History febuxostat 40 mg tablet 40 mg PO DAILY 04/22/24 04/22/24 Unknown History furosemide 80 mg tablet 80 mg PO DAILY 04/22/24 04/22/24 Unknown History hydralazine 25 mg tablet 25 mg PO TID 04/22/24 04/22/24 Unknown History lisinopril 40 mg tablet 40 mg PO DAILY 04/22/24 04/22/24 Unknown History metoprolol tartrate 25 mg tablet 25 mg PO BID 04/22/24 04/22/24 Unknown History midodrine 5 mg tablet 5 mg PO TID 04/22/24 04/22/24 Unknown History nifedipine 30 mg tablet,extended 30 mg PO .DAILY AFTERNOON 04/22/24 04/22/24 Unknown History release pantoprazole 40 mg tablet,delayed 40 mg PO BID 04/22/24 04/22/24 Unknown History release sodium bicarbonate 650 mg tablet 650 mg PO 5XD 04/22/24 04/22/24 Unknown History trazodone 50 mg tablet 50 mg PO BEDTIME 04/22/24 04/22/24 Unknown History vit B,C-folic ac 800 mcg-zinc 12.5 1 tab PO DAILY 04/22/24 04/22/24 Unknown History mg-selen-D3 2,000 unit-vit E tablet (RenaPlex-D) Allergies Allergy/AdvReac Type Severity Reaction Status Date / Time morphine AdvReac ADR-Nausea Verified 04/21/24 23:01 Current Medications Generic Name Dose Route Start Last Admin Trade Name Freq PRN Reason Stop Dose Admin Albuterol/Ipratropium 3 ml 04/21/24 20:00 04/22/24 03:31 Ipratropium-Albuterol 3 Ml Neb INHALATION 3 ml Q6H.RESP JANN Administration Heparin Sodium (Porcine) 0 unit 04/21/24 19:32 04/22/24 04:09 Heparin 5,000 Unit/Ml Inj 1 Ml IV 1,100 unit PRN PRN Administration Heparin weight-base protocol Protocol Heparin Sodium/Sodium Chloride 25,000 unit in 500 mls @ 0 mls/hr 04/21/24 19:45 04/22/24 04:05 Heparin Drip IV 14.7 unit/kg/hr .Q0M JANN 16 mls/hr Titration Protocol Per Protocol Piperacillin Sod/Tazobactam 50 mls @ 12.5 mls/hr 04/21/24 21:00 04/22/24 02:35 Sod 3.375 gm/ Sodium Chloride IV Infused Q12H JANN Infusion Pantoprazole Sodium 40 mg 04/21/24 22:01 04/21/24 23:09 Pantoprazole 40 Mg Sdv IVP 40 mg Q24H JANN Administration Vitals/I&O/Wt Last Vital Signs Temp 97.4 F L 04/22/24 04:00 Pulse 75 04/22/24 04:00 Resp 15 04/22/24 04:00 BP 98/41 04/22/24 04:00 Pulse Ox 95 04/22/24 04:00 O2 Del Method Nasal Cannula 04/22/24 04:00 O2 Flow Rate 2 04/22/24 04:00 FiO2 30 04/21/24 23:26 04/21/24 04/21/24 04/22/24 14:59 22:59 06:59 Intake Total 1100 / 1100 149.06 / 1249.06 Balance 1100 / 1100 149.06 / 1249.06 Weight last 48 hrs Weight 61.371 kg Weight 54.431 kg Physical Exam 2 Narrative: awake alert, no distress HEENT S1-S2 regular rate and rhythm per report Lungs clear per report No pedal edema Data 04/22/24 03:30 04/22/24 03:30 Micro: Microbiology 04/21/24 15:30 Blood Culture - Preliminary Blood SPECIMEN COLLECTED 04/21/24 15:59 Blood Culture - Preliminary Blood SPECIMEN COLLECTED A&P Assessment and plan (1) End stage renal disease on dialysis: 1. End-stage renal disease: On Saturday test today scheduled, dialysis not done yesterday at her center due to low blood pressures. Blood pressures improved currently, plan for hemodialysis today, ultrafiltration as tolerated 2.Acute on chronic respiratory failure: In the setting of acute pneumonia 3. NSTEMI 4. Anemia, will order ERIC with HD Plan Per medicine team Coding Level of Care Code Acute Code for Chg Fwd Diagnoses End stage renal disease on dialysis N18.6; Z99.2
--- NOTE | 2024-04-22 05:55 | PC.NURSE ---
Output: Pt states that she does not make urine.
[2024-04-22] MEDS: budesonide 0.5 mg/2 mL Neb INHALATION ×2 (07:45→19:34)
[2024-04-22] MEDS: piperacillin-tazobactam 3.375 GM in sodium chloride 0.9% (plus) 50 ML IV ×2 (08:33→20:39)
[2024-04-22] MEDS: aspirin 81 mg EC Tablet PO (08:41)
--- NOTE | 2024-04-22 08:59 | PC.PHAR ---
PT REALLY UNSURE OF SOME OF HER MEDICATIONS-VERIFIED WITH PHARMACY AND ADDED FILL DATES IN PHARMACY NOTES.
[2024-04-22 10:22] LABS: Partial Thromboplastin Time 57.4 SECONDS (23.9-36.7)
[2024-04-22] MEDS: heparin, porcine 1,000 unit/mL INJ 10 mL 1000 UNIT IV (10:34)
[2024-04-22] MEDS: albumin 12.5 GM/50 ML VIAL IV ×2 (11:05→11:55)
--- NOTE | 2024-04-22 11:36 | PC.NURSE ---
Physician orders: Xanax 0.5mg ONCE
--- NOTE | 2024-04-22 11:39 | P.PN_ITS ---
Subjective 2 Subjective: This morning patient was examined she was on heparin drip, she was sitting in a recliner Patient was able to answer simple questions I decided to tell her about the CT scan findings and liver ultrasound, with concern that she probably has lymphadenopathy, pulm nodule with mets to liver which would be considered stage IV cancer, she is not sure whether she will opt for chemoradiotherapy she is in not even sure if she will go for biopsy as of now I have called her family to let them know about our concerns they are planning to be here around afternoon or evening to discuss further I also discussed this case with Dr. Ruffin who was planning for evaluation of pleural effusion, patient was reluctant to allow us to use bedside ultrasound, Patient stating that she lives alone, she would trust her nephew Alessandro to make decisions for her however does not have official medical DPOA documentation Patient is stating that she is smoking 1 pack of cigarettes which she finishes in 10 to 15 days Vitals/I&O/Wt Last Vital Signs Temp 97.5 F L 04/22/24 07:26 Pulse 78 04/22/24 07:46 Resp 16 04/22/24 07:46 BP 106/52 04/22/24 06:00 Pulse Ox 99 04/22/24 07:46 O2 Del Method Nasal Cannula 04/22/24 07:46 O2 Flow Rate 2 04/22/24 07:46 FiO2 30 04/21/24 23:26 04/21/24 04/22/24 04/22/24 22:59 06:59 14:59 Intake Total 1100 / 1100 149.06 / 1249.06 120 / 120 Output Total 0 / 0 Balance 1100 / 1100 149.06 / 1249.06 120 / 120 Weight last 48 hrs Weight 61.371 kg Weight 54.431 kg Physical Exam 2 Narrative: Patient is sitting in a recliner Currently on 2 L Borderline low blood pressure Afebrile Malnourished Euvolemic No active chest pain Data 04/22/24 03:30 04/22/24 03:30 Micro: Microbiology 04/21/24 15:30 Blood Culture - Preliminary Blood SPECIMEN COLLECTED 04/21/24 15:59 Blood Culture - Preliminary Blood SPECIMEN COLLECTED A&P Assessment and plan (1) Hypotension: (2) Non-ST elevation ID (NSTEMI): (3) Thrombocytopenia: (4) End stage renal disease on dialysis: (5) Right lower lobe pneumonia: Qualifiers: Pneumonia type: due to unspecified organism Qualified Code(s): J18.9 - Pneumonia, unspecified organism (6) Acute hypoxic respiratory failure: (7) Pleural effusion on right: (8) Metastatic carcinoma to liver: (9) Hilar lymphadenopathy: (10) Pulmonary nodule: Plan Non-STEMI Type II ID? Echo unremarkable Preserved ejection fraction No active chest pain Hypotension Poor p.o. status End-stage renal disease Non-STEMI type II? Echo unremarkable Judicious use of IV fluids if needed Community-acquired pneumonia Continue antibiotics Currently on 2 L She does not use oxygen at home this will be considered acute hypoxia Pulmonary nodule lymphadenopathy, hilar lymphadenopathy, multiple lesions on liver concerning stage IV cancer, primary source could be pulmonary patient is an active smoker, she is not sure whether she will go for biopsy and chemotherapy Family is coming today to discuss further Patient lives alone Patient's history of poor cognition Not able to give a straight answers however answering simple questions Very agitated right now Thrombocytopenia no active bleeding Currently on heparin Monitor closely for now Full code Dialysis diet Attestations 2 Medical Necessity Statement*: Continue medical management Diagnoses Hypotension I95.9 Non-ST elevation ID (NSTEMI) I21.4 Thrombocytopenia D69.6 End stage renal disease on dialysis N18.6; Z99.2 Right lower lobe pneumonia J18.9 Pneumonia type: due to unspecified organism Acute hypoxic respiratory failure J96.01 Pleural effusion on right J90 Metastatic carcinoma to liver C78.7 Hilar lymphadenopathy R59.0 Pulmonary nodule R91.1
[2024-04-22] MEDS: norepinephrine 4 MG/250 ML BAG 7.5 MG IV (12:00)
[2024-04-22] MEDS: ALPRAZolam 0.5 mg Tablet PO (12:09)
[2024-04-22] MEDS: heparin, porcine 1,000 unit/mL INJ 10 mL 10000 UNIT INTRACATH (12:34)
[2024-04-22] MEDS: pantoprazole 40 mg SDV IVP (21:55)
[2024-04-23] VITALS (75 sets, daily range): BP systolic 78–146; BP diastolic 35–84; PULSE 71–104; RESP 13–47; TEMP 36.8–37.2; O2SAT 90–100
[2024-04-23 04:37] LABS: ABG PCO2 42.7 mmHg (35-45); ABG PH Result 7.46 (7.35-7.45); Alveolar-Arterial Oxygen Gradi 19.5 mmHg (5-10); Arterial Blood Gas Hematocrit 36.7 % (37-47); Base Excess ABG 6.1 mmol/L (-2.0-2.0); Blood Gas Allen Test Pos; Blood Gas Operator Identificat JB; Blood Gas Sample Site Radial, right; Blood Gas Sample Type Arterial; HCO3 ABG 30.6 mmol/L (22-26); HGB O2 Sat 94.6 % (95-100); Ionized Calcium Level - ABG 1.1 mmol/L (1.1-1.4); Methemoglobin 0.5 % (0.4-1.5); Oxygen Device VENT; Oxygen Saturation ABG 97.1; PO2 ABG 80.8 mmHg (80.0-100.0); PO2 FiO2 Ratio Arterial Blood 202; Potassium Level - ABG 3.2 mmol/L (3.5-5.0)
[2024-04-23] MEDS: norepinephrine 4 MG/250 ML BAG 15 MG IV ×2 (04:56→21:15)
[2024-04-23 05:30] LABS: Basophils # 0.1 10^3/uL (0.0-0.1); Basophils % 0.5 %; Eosinophils # 0.1 10^3/uL (0.0-0.8); Eosinophils % 0.7 %; Hematocrit 33.3 % (36-47); Lymphocytes # 1.5 10^3/uL (0.8-4.8); Lymphocytes % 10.6 %; Mean Corpuscular HGB Conc 28.8 g/dL (30-55); Mean Corpuscular Hemoglobin 31.1 pg (27-33); Mean Corpuscular Volume 107.8 fl (85-98); Monocytes # 1.3 10^3/uL (0.2-0.9); Monocytes % 9.1 %; Neutrophils # 10.86 10^3/uL (1.8-7.7); Neutrophils % 78.5 %; Nucleated Red Blood Cells % 0 %; Platelet Count 103 10^3/cmm (157-399); Red Blood Count 3.09 10^6/uL (3.85-5.65); Red Cell Distribution Width 15.9 % (12.1-15.1); White Blood Count 13.81 10^3/uL (3.29-11.43)
[2024-04-23 05:49] LABS: Alanine Aminotransferase 33 U/L (0-33); Albumin Level 3.6 g/dL (3.5-5.2); Alkaline Phosphatase 169 U/L (35-105); Anion Gap 15.3 (5-19); Aspartate Amino Transferase 61 U/L (0-32); Blood Urea Nitrogen 19 mg/dL (8-23); Calcium 10.3 mg/dL (8.5-10.5); Carbon Dioxide 29 mmol/L (22-29); Chloride 99 mmol/L (98-107); Globulin 2.7 g/dL (1.3-4.6); Glucose 84 mg/dL (65-115); Osmolality Calculated 289 mOsm/kg (285-295); Potassium 4.3 mmol/L (3.5-5.1); Sodium 139 mmol/L (136-145); Total Bilirubin 0.8 mg/dL (0.15-1.2); Total Protein 6.3 g/dL (6.6-8.7)
[2024-04-23] MEDS: ipratropium-albuterol 3 mL Neb INHALATION ×2 (07:49→20:05)
[2024-04-23] MEDS: budesonide 0.5 mg/2 mL Neb INHALATION ×2 (07:49→20:05)
[2024-04-23] MEDS: ferrous gluconate 324 mg Tablet PO (08:15)
[2024-04-23] MEDS: piperacillin-tazobactam 3.375 GM in sodium chloride 0.9% (plus) 50 ML IV ×2 (08:15→21:14)
[2024-04-23] MEDS: aspirin 81 mg EC Tablet PO (08:15)
[2024-04-23] MEDS: lanolin oint 7 gm 1 APPLIC TOPICAL (08:58)
--- NOTE | 2024-04-23 09:43 | PM.PN ---
Subjective Subjective: no new c/o Medications: Reviewed: Yes Vitals/I&O/Wt Last Vital Signs Temp 98.3 F 04/23/24 07:55 Pulse 90 04/23/24 09:00 Resp 24 H 04/23/24 09:00 BP 78/42 04/23/24 09:00 Pulse Ox 97 04/23/24 09:00 O2 Del Method Nasal Cannula 04/23/24 07:50 O2 Flow Rate 2 04/23/24 07:50 FiO2 30 04/21/24 23:26 04/22/24 04/23/24 04/23/24 22:59 06:59 14:59 Intake Total 149.94 / 763.065 397.875 / 1160.940 120 / 120 Balance 149.94 / -871.935 397.875 / -474.060 120 / 120 Weight last 48 hrs Weight 59.375 kg Weight 62.1 kg Weight 62.1 kg Weight 61.371 kg Weight 54.431 kg Physical Exam Narrative: awake alert, no distress HEENT S1-S2 regular rate and rhythm per report Lungs clear per report No pedal edema Data 04/23/24 04:47 04/23/24 04:47 Micro: Microbiology 04/21/24 15:30 Blood Culture - Preliminary Blood NEGATIVE TO DATE 04/21/24 15:59 Blood Culture - Preliminary Blood NEGATIVE TO DATE A&P Assessment and plan (1) End stage renal disease on dialysis: 1. End-stage renal disease: On TTS schedule as out pt , Blood pressures improved currently, s/p HD yesterday , ultrafiltration as tolerated 2.Acute on chronic respiratory failure: In the setting of acute pneumonia 3. NSTEMI 4. Anemia, will order ERIC with HD Plan Per medicine team Attestations Medical Necessity Statement*: per [facility] Coding Level of Care Code Acute Code for Chg Fwd Diagnoses End stage renal disease on dialysis N18.6; Z99.2
--- NOTE | 2024-04-23 12:21 | P.PN_ITS ---
Subjective 2 Subjective: This morning patient is awake oriented to person and place but not time Poor attention span Patient stating that she is still undecided whether she would opt for histopathological diagnosis or chemotherapy She is okay with DNR/DNI status for now Family is at the bedside She is due for dialysisTTS Off levo this morning Vitals/I&O/Wt Last Vital Signs Temp 98.3 F 04/23/24 07:55 Pulse 86 04/23/24 12:00 Resp 24 H 04/23/24 12:00 BP 103/45 04/23/24 12:00 Pulse Ox 100 04/23/24 11:45 O2 Del Method Nasal Cannula 04/23/24 07:50 O2 Flow Rate 2 04/23/24 07:50 FiO2 30 04/21/24 23:26 04/22/24 04/23/24 04/23/24 22:59 06:59 14:59 Intake Total 149.94 / 763.065 397.875 / 1160.940 120 / 120 Balance 149.94 / -871.935 397.875 / -474.060 120 / 120 Weight last 48 hrs Weight 59.375 kg Weight 62.1 kg Weight 62.1 kg Weight 61.371 kg Weight 54.431 kg Physical Exam 2 Narrative: Clinically does not look fluid overloaded No sign of agonal breathing today She is sitting up in her bed Currently on 2 L Blood pressure slightly soft Poor attention span Oriented to place and person but not time No new focal deficit Data 04/23/24 04:47 04/23/24 04:47 Micro: Microbiology 04/21/24 15:30 Blood Culture - Preliminary Blood NEGATIVE TO DATE 04/21/24 15:59 Blood Culture - Preliminary Blood NEGATIVE TO DATE A&P Assessment and plan (1) Hypotension: (2) Non-ST elevation HI (NSTEMI): (3) Thrombocytopenia: (4) End stage renal disease on dialysis: (5) Right lower lobe pneumonia: Qualifiers: Pneumonia type: due to unspecified organism Qualified Code(s): J18.9 - Pneumonia, unspecified organism (6) Acute hypoxic respiratory failure: (7) Pleural effusion on right: (8) Metastatic carcinoma to liver: (9) Hilar lymphadenopathy: (10) Pulmonary nodule: Plan Non-STEMI Type II HI No active chest pain Hypotension Off Levophed this morning Required Levophed during dialysis Acute hypoxia with community-acquired pneumonia Continue antibiotics Currently on 2 L She does not use oxygen at home this will be considered acute hypoxia Stage IV cancer with unknown primary pulmonary nodule lymphadenopathy, hilar lymphadenopathy, multiple lesions on liver concerning stage IV cancer, primary source could be pulmonary patient is an active smoker, she is not sure whether she will go for biopsy and chemotherapy Patient is still indecisive Family leaning toward less aggressive approach at this point Goals of care changed to DNR/DNI patient is in agreement Thrombocytopenia: Stable DNR/DNI Dialysis diet Attestations 2 Medical Necessity Statement*: Continue ICU management Diagnoses Hypotension I95.9 Non-ST elevation HI (NSTEMI) I21.4 Thrombocytopenia D69.6 End stage renal disease on dialysis N18.6; Z99.2 Right lower lobe pneumonia J18.9 Pneumonia type: due to unspecified organism Acute hypoxic respiratory failure J96.01 Pleural effusion on right J90 Metastatic carcinoma to liver C78.7 Hilar lymphadenopathy R59.0 Pulmonary nodule R91.1
--- NOTE | 2024-04-23 18:12 | ECG_ITS ---
[facility] Test Date: 2024-04-23 Pat Name: Renetta Dodd Department: Room: [facility] Gender: Female Knocker Out: : 1950 Requested By: Yousuf Jiménez Order Number: [id number] Jassi MD: Nancy Villegas M.D. Measurements Intervals [place] Rate: 93 P: 24 LA: 114 QRS: 11 QRSD: 85 T: 23 QT: 343 QTc: 427 Interpretive Statements SINUS RHYTHM WITH SHORT LA INTERVAL NONSPECIFIC ST & T-WAVE ABNORMALITY WARNING: DATA QUALITY MAY AFFECT INTERPRETATION Compared to ECG 04/21/2024 23:55:44 Possible ischemia no longer present T-wave abnormality still present Electronically Signed On 04-24-2024 20:37:08 CDT by Nancy Villegas M.D. [id number]
[2024-04-23] MEDS: vancomycin 500 MG in sodium chloride 0.9% (plus) 100 ML 200 MG IV (19:52)
[2024-04-23] MEDS: pantoprazole 40 mg SDV IVP (21:14)
[2024-04-24] VITALS (32 sets, daily range): BP systolic 68–144; BP diastolic 38–59; PULSE 78–99; RESP 4–27; TEMP 36.8; O2SAT 89–100
[2024-04-24] MEDS: aspirin 81 mg EC Tablet PO (08:15)
[2024-04-24] MEDS: piperacillin-tazobactam 3.375 GM in sodium chloride 0.9% (plus) 50 ML IV (08:15)
[2024-04-24] MEDS: budesonide 0.5 mg/2 mL Neb INHALATION (08:57)
[2024-04-24] MEDS: ipratropium-albuterol 3 mL Neb INHALATION (08:57)
--- NOTE | 2024-04-24 10:13 | PM.DCS ---
Discharge Providers Date of Admission: 04/21/24 20:26 Date of Discharge: April 24, 2024 Attending Provider at Admission: Conrado Herbert MD Attending Provider at Discharge: Yousuf Jiménez MD Diagnoses at Discharge Discharge Diagnosis (1) End stage renal disease on dialysis: Status: Acute Reason for Visit Reason for Visit: SOB Hospital Course Hospital Course 73 female who was recently discharged from [facility] after 2 weeks of treatment in the hospital to [facility], she was put on dialysis for worsening kidney function, at home she used to live alone she is not in touch with her family, she has a nephew Alessandro who she first to make decisions for her however does not have official medical DPOA documentation, at the time of admission there was concern for non-STEMI and hypotension she was put on ACS protocol however echo was unremarkable she did not complain of chest pain, it was likely type II [place], we did further investigation with CT chest abdomen pelvis which showed multiple pulm nodules, hilar lymphadenopathy and multiple lesions on the liver consistent with likely metastatic stage IV cancer with unknown primary, patient is a smoker, likely pulmonary is the primary lesion. 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 echo complete* [id number] Routine Ultrasound 04/21/24 19:44 [place] [id number] Routine Ultrasound 04/22/24 02:38 Completed Pending at discharge Category Date Time Status Basic Metabolic Panel Routine Lab 04/24/24 09:32 Ordered Blood Culture Stat Lab 04/21/24 15:30 Results MRSA [Methicillin Resistant S.aureu] Routine Lab 04/21/24 22:01 Ordered Sputum Culture and Gram Stain Stat Lab 04/21/24 19:32 Uncollected Urinalysis Routine Lab 04/21/24 22:01 Uncollected Radiology Impressions Chest X-Ray 04/21/24 15:37 IMPRESSION: 1. Large caliber central venous catheter or dialysis catheter on the right. 2. Opacity lower right lung as noted above. Findings suggest mild right basilar effusion with underlying atelectasis and/or infiltrate or pneumonia. Chest CTA 04/21/24 21:48 IMPRESSION: 1. No evidence of pulmonary embolism. 2. Large multiloculated right pleural effusion with mild pleural thickening and nodularity. Findings are suspicious for possible malignant effusion. 3. Posterior right upper lobe and more extensive right middle lower lobe atelectasis and volume loss. An underlying pulmonary lesion could be obscured. 4. Mild upper lung zone emphysema, biapical scarring and numerous scattered tiny punctate pulmonary nodules. Fleischner Society follow up recommendations for incidental nodules are not applicable. Follow up per the patient's medical condition. 5. Mediastinal, right hilar and subcarinal lymphadenopathy including 2.1 x 3.1 cm subcarinal lymph node. 6. Heterogeneous liver with innumerable hepatic low-attenuation lesions suspicious for diffuse hepatic metastasis. 7. Atherosclerotic vascular disease including coronary artery disease. 8. Densely calcified visualized upper abdominal aorta with severe aortic stenosis. COMMENTS: The presence of pulmonary emphysema on CT is an independent risk factor for lung cancer. In the absence of a history or active diagnosis of lung cancer, it is recommended that this patient with emphysema be evaluated for enrollment in a low dose CT lung cancer screening program. Head CT 04/22/24 02:09 IMPRESSION: No definite acute intracranial process. Age-indeterminate ischemia in the right occipital lobe. Endovascular implants noted. Liver Ultrasound 04/22/24 02:38 IMPRESSION: 1. Diffusely heterogeneous liver measuring 17.2 cm in length with innumerable small hepatic nodules. Differential diagnosis includes hepatic cirrhosis with regenerative nodules versus diffuse hepatic metastasis. 2. Mild dependent layering biliary sludge within the posterior gallbladder. 3. Large right pleural effusion. Laboratory Results WBC 13.81 10^3/uL (3.29-11.43) H 04/23/24 04:47 RBC 3.09 10^6/uL (3.85-5.65) L 04/23/24 04:47 Hgb 9.60 g/dL (11.27-16.99) L 04/23/24 04:47 Hct 33.3 % (36-47) L 04/23/24 04:47 MCV 107.8 fl (85-98) H 04/23/24 04:47 MCH 31.1 pg (27-33) 04/23/24 04:47 MCHC 28.8 g/dL (30-55) L 04/23/24 04:47 RDW 15.9 % (12.1-15.1) H 04/23/24 04:47 Plt Count 103 10^3/cmm (157-399) L 04/23/24 04:47 MPV 12.0 fL (7.4-10.4) H 04/23/24 04:47 Neut % (Auto) 78.5 % 04/23/24 04:47 Lymph % (Auto) 10.6 % 04/23/24 04:47 [place] % (Auto) 9.1 % 04/23/24 04:47 Eos % (Auto) 0.7 % 04/23/24 04:47 Baso % (Auto) 0.5 % 04/23/24 04:47 Neut # (Auto) 10.86 10^3/uL (1.8-7.7) H 04/23/24 04:47 Lymph # (Auto) 1.5 10^3/uL (0.8-4.8) 04/23/24 04:47 [place] # (Auto) 1.3 10^3/uL (0.2-0.9) H 04/23/24 04:47 Eos # (Auto) 0.1 10^3/uL (0.0-0.8) 04/23/24 04:47 Baso # (Auto) 0.1 10^3/uL (0.0-0.1) 04/23/24 04:47 Nucleated RBC % (auto) 0 % 04/23/24 04:47 Nucleated RBCs # 0.0 /100WBC 04/23/24 04:47 APTT 57.4 SECONDS (23.9-36.7) H 04/22/24 09:58 D-Dimer 17.25 ug/mLFEU (0-0.59) H 04/21/24 15:30 Specimen Type Arterial 04/23/24 04:23 Sample Site Radial, right 04/23/24 04:23 ABG pH 7.46 (7.35-7.45) H 04/23/24 04:23 ABG pCO2 42.7 mmHg (35-45) 04/23/24 04:23 ABG pO2 80.8 mmHg (80.0-100.0) 04/23/24 04:23 ABG PO2/FiO2 Ratio 202 04/23/24 04:23 ABG HCO3 30.6 mmol/L (22-26) H 04/23/24 04:23 ABG O2 Saturation 97.1 04/23/24 04:23 ABG Base Excess 6.1 mmol/L (-2.0-2.0) H 04/23/24 04:23 Sid Test Pos 04/23/24 04:23 A-a O2 Gradient 19.5 mmHg (5-10) H 04/23/24 04:23 Hematocrit 36.7 % (37-47) L 04/23/24 04:23 Hgb O2 Saturation 94.6 % (95-100) L 04/23/24 04:23 Carboxyhemoglobin 2.0 %THgb (0.4-20.1) 04/23/24 04:23 Methemoglobin 0.5 % (0.4-1.5) 04/23/24 04:23 Total Hemoglobin 12.0 g/dL (12-16) 04/23/24 04:23 Sodium 130.0 mmol/L (131-143) L 04/23/24 04:23 Potassium 3.2 mmol/L (3.5-5.0) L 04/23/24 04:23 Glucose 166.0 mg/dL (70-115) H 04/23/24 04:23 Ionized Calcium 1.1 mmol/L (1.1-1.4) 04/23/24 04:23 O2 Delivery Device Vent 04/23/24 04:23 O2 Liters/Min 2.0 % 04/21/24 15:44 FiO2 40.0 % 04/23/24 04:23 Tidal Volume 0.40 04/23/24 04:23 PEEP 8.0 cmH20 04/23/24 04:23 Stamping Die Maker Bench ID Neto 04/23/24 04:23 Sodium Cancelled 04/24/24 08:52 Potassium Cancelled 04/24/24 08:52 Chloride Cancelled 04/24/24 08:52 Carbon Dioxide Cancelled 04/24/24 08:52 Anion Gap Cancelled 04/24/24 08:52 BUN Cancelled 04/24/24 08:52 Creatinine Cancelled 04/24/24 08:52 GFR Calculation Cancelled 04/24/24 08:52 Glucose Cancelled 04/24/24 08:52 Estimat Average Glucose 65 04/22/24 03:30 Hemoglobin A1c 3.9 % (4.0-6.0) L 04/22/24 03:30 Calculated Osmolality Cancelled 04/24/24 08:52 Lactic Acid 1.9 mmol/L (0.5-2.2) 04/21/24 15:30 Calcium Cancelled 04/24/24 08:52 Phosphorus 6.3 mg/dL (2.5-4.5) H 04/22/24 03:30 Magnesium 1.6 mg/dL (1.7-2.3) L 04/22/24 03:30 Iron 51 ug/dL (37-145) 04/21/24 22:20 TIBC 196 mcg/dl 04/21/24 22:20 % Saturation 26.0 % (20-50) 04/21/24 22:20 Unsat Iron Binding 145 ug/dL (112-347) 04/21/24 22:20 Total Bilirubin 0.8 mg/dL (0.15-1.2) 04/23/24 04:47 AST 61 U/L (0-32) H 04/23/24 04:47 ALT 33 U/L (0-33) 04/23/24 04:47 Alkaline Phosphatase 169 U/L (35-105) H 04/23/24 04:47 Ammonia 32 umol/L (11-51) 04/22/24 03:30 Troponin T Baseline 772 ng/L (0-10) H* 04/21/24 15:30 Troponin T 120 Minute 733.0 ng/L (0-10) H 04/21/24 17:12 Delta Troponin T -39.0 ABS# (0-10) L 04/21/24 17:12 Troponin T Hi Sens 6Hr 661.6 ng/L (0-10) H 04/21/24 22:20 Troponin T Hi Sens 6Hr Delta -110.4 ng/L (0-12) L 04/21/24 22:20 Total Protein 6.3 g/dL (6.6-8.7) L 04/23/24 04:47 Albumin 3.6 g/dL (3.5-5.2) 04/23/24 04:47 Globulin 2.7 g/dL (1.3-4.6) 04/23/24 04:47 Triglycerides 101 mg/dL (0-150) 04/22/24 03:30 Cholesterol 143 mg/dL (0-200) 04/22/24 03:30 LDL Cholesterol, Calc 68 mg/dL (50-129) 04/22/24 03:30 HDL Cholesterol 55 mg/dL (60-100) L 04/22/24 03:30 LDL/HDL Ratio 1.24 RATIO (0.00-3.22) 04/22/24 03:30 Cholesterol/HDL Ratio 2.60 mg/dL (0.0-4.40) 04/22/24 03:30 Vitamin B12 1790 pg/mL (232-1245) H 04/21/24 22:20 Folate 8.9 ng/mL (4.8-37.3) 04/22/24 03:30 Procalcitonin > 100.00 ng/mL (0-0.5) H 04/22/24 03:30 TSH 3.62 uIU/mL (0.27-4.20) 04/21/24 22:20 Hepatitis A IgM Ab Non-reactive (Nonreactive) 04/22/24 03:30 Hep Bs Antigen Non-reactive (Nonreactive) 04/22/24 03:30 Hep Bs Antibody 34.7 (11.5-1000) 04/22/24 03:30 Hep B Core Total Ab Non-reactive (Nonreactive) 04/22/24 03:30 Hepatitis C Antibody Non-reactive (Nonreactive) 04/22/24 03:30 HIV 1&2 Ab & HIV 1 Ag Non-reactive (Non-Reactiv) 04/22/24 03:30 HIV 1&2 Antibody Non-reactive (Non-Reactiv) 04/22/24 03:30 Vitals Last Vital Signs Temp 98.3 F 04/24/24 05:48 Pulse 85 04/24/24 10:00 Resp 26 H 04/24/24 10:00 BP 131/52 04/24/24 09:00 Pulse Ox 97 04/24/24 10:00 O2 Del Method Nasal Cannula 04/24/24 08:58 O2 Flow Rate 2 04/24/24 08:58 FiO2 30 04/21/24 23:26 Discharge Plan Discharge Patient Disposition: Hospice - Home Condition: Stable Prescriptions: Discontinued atorvastatin 40 mg tablet 40 mg PO QPM clonidine HCl 0.1 mg tablet 0.1 mg PO BID albuterol sulfate 2.5 mg /3 mL (0.083 %) solution for nebulization 2.5 mg inhalation Q6H PRN (Reason: Shortness Of Breath) trazodone 50 mg tablet 50 mg PO BEDTIME midodrine 5 mg tablet 5 mg PO TID hydralazine 25 mg tablet 25 mg PO TID nifedipine 30 mg tablet extended release 30 mg PO .DAILY AFTERNOON furosemide 80 mg tablet 80 mg PO DAILY sodium bicarbonate 650 mg tablet 650 mg PO 5XD pantoprazole 40 mg tablet,delayed release (DR/EC) 40 mg PO BID lisinopril 40 mg tablet 40 mg PO DAILY calcitriol 0.25 mcg capsule 0.25 mcg PO DAILY doxazosin 2 mg tablet 2 mg PO BEDTIME metoprolol tartrate 25 mg tablet 25 mg PO BID cinacalcet 30 mg tablet 30 mg PO DAILY febuxostat 40 mg tablet 40 mg PO DAILY RenaPlex-D 800 mcg-12.5 mg -2,000 unit tablet 1 tab PO DAILY Discharge Orders: Discharge Order (Routine); Ordered 04/24/24 Ordered By: Yousuf Jiménez Referrals: [facility] [Outside] Oscar Lara FNP [Nurse Practitioner] - Patient Instructions: Pain Management Discharge Attestations Time Spent in Discharge Care*: greater than 30 min Quality Metrics Clinical Quality Measures [ No reported AMI, CVA or VTE this stay] Coding Level of Care Code Acute Code for Chg Fwd Diagnoses End stage renal disease on dialysis N18.6; Z99.2
--- NOTE | 2024-04-24 11:30 | PC.SOCIAL ---
IMM Update pg 2 of IMM updated and reviewed w/ patient. Copy provided and copy dated, initialed and placed in chart.
--- NOTE | 2024-04-24 14:38 | PC.NURSE ---
Patient was sent with EMS via stretcher home on hospice. Family made aware. All belongings with patient.
[2024-04-24 15:45] LABS: Methicillin-Resist S.aureu PCR NOT DETECTED (NOT DETECTED)
== END 2024-04-24 14:30 | disposition hospice, home (50) | DRG 193 ==
LOC: ER 19:52 → ICU 20:26
PROVIDERS: Student in an Organized Health Care Education/Training Program; Admitting Provider Student in an Organized Health Care Education/Training Program; Emergency Provider Emergency Medicine; Visit Provider Internal Medicine
DX: J18.9 Pneumonia, unspecified organism (principal); J96.01 Acute respiratory failure with hypoxia; N18.6 End stage renal disease; J90 Pleural effusion, not elsewhere classified; I95.9 Hypotension, unspecified; D69.6 Thrombocytopenia, unspecified; Z66 Do not resuscitate; D63.1 Anemia in chronic kidney disease; Z99.2 Dependence on renal dialysis; F17.210 Nicotine dependence, cigarettes, uncomplicated; K76.89 Other specified diseases of liver; R91.8 Other nonspecific abnormal finding of lung field; R59.0 Localized enlarged lymph nodes
CPT/HCPCS: 36415; 36600; 70450; 71045; 71275; 76705; 80051; 80053; 80061; 82140; 82330; 82607; 82746; 82805; 83036; 83540; 83550; 83605; 83735; 84100; 84145; 84443; 84484; 85025; 85378; 85730; 86705; 86706; 86709; 86803; 87040; 87340; 87641; 87806; 90935; 93005; 93306; 94640; 94660; 94664; 96365; 96366; 96367; 99291; C9113; J1644; J2020; J2185; J2543; J3370; J7040; J7050; J7626; P9047; Q3014; Q9967